=== PATIENT | male | born 1990 | race African-American/Black ===

== ENCOUNTER 2019-09-18 10:38 | Emergency (ER) | payer SELFPAY ==
[~2019-09-18] VITALS: Ht 185.4 cm; Wt 90.7 kg
[2019-09-18 10:46] VITALS: BP 130/85
--- NOTE | 2019-09-18 11:14 | NUR ---
HYDROGEN PEROXIDE DROPS INSTILLED ON LEFT EAR.
[2019-09-18] MEDS ORDERED: DOCUSATE SODIUM LIQ 100 MG/10 ML UDC ONE (12:40)
[2019-09-18] MEDS ORDERED: DOCUSATE SODIUM LIQ 100 MG/10 ML UDC XX ONE (13:30)
--- NOTE | 2019-09-18 13:42 | NUR ---
earwax build up mostly removed. Patient discharged to home in stable condition. Written and verbal after care instructions given. Patient verbalizes understanding of instruction.
== END 2019-09-18 13:43 | disposition home or self-care (01) ==
LOC: ER 10:39
DX: H61.22 Impacted cerumen, left ear (principal); Z60.2 Problems related to living alone

== ENCOUNTER 2019-09-19 05:53 | Emergency (ER) | payer SELFPAY ==
[~2019-09-19] VITALS: Ht 185.4 cm; Wt 90.7 kg
[2019-09-19 06:04] VITALS: BP 125/70
[2019-09-19] MEDS ORDERED: DOCUSATE SODIUM LIQ 100 MG/10 ML UDC ONE (06:21)
[2019-09-19] MEDS ORDERED: DOCUSATE SODIUM LIQ 100 MG/10 ML UDC XX ONE (06:30)
--- NOTE | 2019-09-19 07:06 | NUR ---
Patient discharged to home in stable condition. Written and verbal after care instructions given. Patient verbalizes understanding of instruction. Pt ambulatory with a steady gait
== END 2019-09-19 07:07 | disposition home or self-care (01) ==
LOC: ER 05:55
DX: H61.22 Impacted cerumen, left ear (principal); Z60.2 Problems related to living alone

== ENCOUNTER 2020-06-03 22:47 | Emergency (ER) | payer OTHER ==
[~2020-06-03] VITALS: Ht 188 cm; Wt 90.7 kg
[2020-06-03 22:53] VITALS: BP 125/83
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
[2020-06-03] MEDS ORDERED: ONDANSETRON 4 MG TAB.RAPDIS ONE (23:14)
[2020-06-03] MEDS ORDERED: HYDROCODONE/APAP 5/325MG TABLET ONE (23:14)
[2020-06-03] MEDS ORDERED: CYCLOBENZAPRINE 10 MG TABLET ONE (23:14)
--- NOTE | 2020-06-03 23:15 | NUR ---
[facility] AT BEDSIDE
[2020-06-03] MEDS ORDERED: ONDANSETRON 4 MG TAB.RAPDIS SL ONE (23:30)
[2020-06-03] MEDS ORDERED: CYCLOBENZAPRINE 10 MG TABLET PO ONE (23:30)
[2020-06-03] MEDS ORDERED: HYDROCODONE/APAP 5/325MG TABLET PO ONE (23:30)
--- NOTE | 2020-06-03 23:56 | NUR ---
Patient discharged to home in stable condition. Written and verbal after care instructions given. Patient verbalizes understanding of instruction.
== END 2020-06-04 00:09 | disposition home or self-care (01) ==
LOC: ER 22:49
DX: S20.211A Contusion of right front wall of thorax, initial encounter (principal); S30.811A Abrasion of abdominal wall, initial encounter; V49.49XA Driver injured in collision with other motor vehicles in traffic accident, initial encounter; Y93.89 Activity, other specified; Y92.488 Other paved roadways as the place of occurrence of the external cause; Y99.8 Other external cause status
CPT/HCPCS: 71045; 93005; 99284; Q0162